=== PATIENT | female | born 1980 | race American Indian/Alaskan Native ===

== ENCOUNTER 2016-12-31 03:16 | Emergency (ER) | payer OTHER ==
[2016-12-31] MEDS ORDERED: Morphine 2 MG/ML Syringe IVPUSH ONE (03:21)
[2016-12-31 03:22] VITALS: BP 131/66
--- NOTE | 2016-12-31 03:28 | EDM.PDOC ---
ED HPI Trauma - General Stated Complaint: BY AMBULANCE Time Seen by Provider: 12/31/16 03:20 Source: Reports: Patient History Limitations: Reports: No limitations - History of Present Illness INITIAL COMMENTS - FREE TEXT/NARRATIVE: This 37 yo female patient was brought to the ED by [facility] due to bilateral ankle pain. The patient reports she was walking and missed a step. The patient reports increased pain (more pain in the left ankle than the right). The patient has had previous surgery on her right ankle. EMS had splinted her left ankle and given the patient Morphine (2 mg) while enroute. CMS was intact distal to the injuries. The patient reports she had about 6 mixed drinks this evening prior to the incident. Symptom Onset Date: 12/31/16 Occurred When: just prior to arrival Occurred Where: other Method of Injury: fall Severity: moderate Pain/Injury Location: Reports: lower extremity, right, lower extremity, left Consciousness: Reports: no loss of consciousness Associated Symptoms: Reports: no other symptoms Allergies/ADRs: Allergies ceftriaxone [From Rocephin] Allergy (Verified 12/31/16 03:23) Other Home Medications: Ambulatory Orders . [No Known Home Meds] 12/31/16 [Confirmed 12/31/16] Review of Systems - Review of Systems Review Of Systems: ROS reveals no pertinent complaints other than HPI. Trauma Exam - Physical Exam Exam: See Below Exam Limited By: No limitations General Appearance: Reports: alert, WD/WN, moderate distress Head: Reports: atraumatic, normocephalic Eyes: bilateral eye: EOMI, normal inspection, PERRL Ears: Reports: normal external exam, normal canal, hearing grossly normal, normal TMs Nose: Reports: normal inspection, normal mucousa, no blood Throat/Mouth: Reports: Normal inspection, Normal lips, Normal teeth, Normal gums , Normal oropharynx, Normal voice, No airway compromise Neck: Reports: non-tender, full range of motion, normal alignment, normal inspection Respiratory Exam: Reports: no respiratory distress, lungs clear, normal breath sounds Cardiovascular: Reports: normal peripheral pulses, regular rate, rhythm, no edema, no gallop, no JVD, no murmur, no rub GI/Abdominal: Reports: normal bowel sounds, soft, non tender, no organomegaly, no distention, no abnormal bruit, no mass (Female) Exam: Deferred Rectal (Female) Exam: Deferred Extremities: Reports: bony-point tenderness (bilateral ankles), pain with movement (bilateral ankles), unable to bear weight (left ankle due to pain and deformity) Neurologic: Reports: 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-XII nml as tested, alert, normal mood/affect, oriented x 3 - [place] Coma Score Best Eye Response ([place]): (4) open spontaneously Best Verbal Response ([place]): (5) oriented Best Motor Response ([place]): (6) obeys commands [place] Total: 15 Course - Vital Signs Last Recorded V/S: Last Vital Signs Temp 36.4 C 12/31/16 03:17 Pulse 128 H 12/31/16 03:17 Resp 20 12/31/16 03:17 BP 131/66 12/31/16 03:17 Pulse Ox 100 12/31/16 03:17 - Orders/Labs/Meds Orders: Active Orders 24 hr Category Date Time Status Ankle 2V Bi [CR] Urgent Exams 12/31/16 03:21 Ordered Meds: Medications Discontinued Medications Generic Name Dose Route Start Last Admin Trade Name Yusuf PRN Reason Stop Dose Admin Morphine Sulfate 2 mg 12/31/16 03:21 12/31/16 03:31 Morphine IVPUSH 12/31/16 03:22 2 mg ONETIME ONE Administration Departure - Departure Time of Disposition: 04:19 Disposition: DC/Tfer to Acute Hospital 02 Condition: poor Clinical Impression: Closed trimalleolar fracture of left ankle Qualifiers: Encounter type: initial encounter Qualified Code(s): S82.852A - Displaced trimalleolar fracture of left lower leg, initial encounter for closed fracture Forms: Interfacility Transfer EMTALA Care Plan Goals: Discussed the examination and x-ray results with Dr. Moody (Orthopedics with [facility] in [place]). Dr. Moody accepted the patient for continued evaluation and further management. The patient will be transported by [facility]. - My Orders Last 24 Hours: My Active Orders 12/31/16 03:21 Ankle 2V Bi [CR] Urgent - Assessment/Plan Last 24 Hours: My Active Orders 12/31/16 03:21 Ankle 2V Bi [CR] Urgent
[2016-12-31] MEDS ORDERED: HYDROmorphone 1 MG/ML Syringe IVPUSH ONE (04:09)
== END 2016-12-31 04:53 ==
LOC: EDBD → DL.ED 03:16 → EDUNIT# 03:16 → DL.ED 04:53
DX: S82.852A Displaced trimalleolar fracture of left lower leg, initial encounter for closed fracture (principal); Z88.1 Allergy status to other antibiotic agents; W19.XXXA Unspecified fall, initial encounter
CPT/HCPCS: 73600; 96374; 96375; 99285; J1170; J2270

== ENCOUNTER 2017-02-21 00:50 | Emergency (ER) | payer OTHER ==
[2017-02-21 01:16] VITALS: BP 140/81
[2017-02-21] MEDS ORDERED: Acetaminophen/HYDROcodone 325-10 MG Tab ONE (02:03)
[2017-02-21] MEDS ORDERED: Acetaminophen/HYDROcodone 325-10 MG Tab PO ONE ×2 (02:03)
--- NOTE | 2017-02-21 02:25 | EDM.PDOC ---
ED HPI GENERAL MEDICAL PROBLEM - General Chief Complaint: Lower Extremity Injury/Pain Stated Complaint: SURG ON L ANKLE, IN PAIN Time Seen by Provider: 02/21/17 02:09 Source of Information: Reports: Patient History Limitations: Reports: No Limitations - History of Present Illness INITIAL COMMENTS - FREE TEXT/NARRATIVE: c/o pain to left ankle. Hx fracture with ORIF twice in December for injury sustained while falling off step. Pain has been chronic since 2nd surgery and not relived with ibuprofen or tylenol. Unable to get comfortable tonight. Reports did contact surgeon today and was told to come to ED if need something stronger. Patient denies change or worsening of pain, just uanble to tolerate it tonight. Has been non weight bearing, Has had boot off for exercises. Has not noted any increased swelling or redness. Last saw ortho last week when casting removed and placed in boot. 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 Left Ankle Pain Score (Numeric/FACES): 5 - Related Data Allergies Allergy/AdvReac Type Severity Reaction Status Date / Time ceftriaxone [From Rocephin] Allergy Other Verified 02/21/17 01:16 ceftriaxone sodium Allergy Cannot Verified 02/21/17 01:16 [From Rocephin] Remember Home Meds: Home Meds oxyCODONE HCl/Acetaminophen [oxyCODONE-Acetaminophen 5-325] 1 - 2 tab PO Q6H PRN 02/21/17 [History] Past Medical History - Past Health History Medical/Surgical History: Denies Medical/Surgical History - Past Surgical History Musculoskeletal Surgical History: Reports: Other (See Below) Other Musculoskeletal Surgeries/Procedures:: left ankle fracture and procedure done on December 31, 2016 Social & Family History - Tobacco Use Smoking Status *Q: Never Smoker Second Hand Smoke Exposure: No - Caffeine Use Caffeine Use: Reports: Coffee, Soda - Recreational Drug Use Recreational Drug Use: No Review of Systems - Review of Systems Review Of Systems: ROS reveals no pertinent complaints other than HPI. ED EXAM, GENERAL - Physical Exam Exam: See Below Exam Limited By: No Limitations General Appearance: Alert, Moderate Distress Nose: Normal Inspection Throat/Mouth: Normal Inspection Respiratory/Chest: No Respiratory Distress, Lungs Clear, Normal Breath Sounds Cardiovascular: Normal Peripheral Pulses, Regular Rate, Rhythm, No Edema Extremities: Other (bilateral incisions to left ankle crusted, no redness or swelling, pedal pulses present, limited ROM. Cam walker on , placed appropriatelyl) Neurological: Alert, Oriented Psychiatric: Normal Affect, Normal Mood Skin Exam: Warm, Dry Course - Vital Signs Last Recorded V/S: Last Vital Signs Temp 97.5 F 02/21/17 01:04 Pulse 96 02/21/17 01:04 Resp 18 02/21/17 01:04 BP 140/81 02/21/17 01:04 Pulse Ox 100 02/21/17 01:04 - Orders/Labs/Meds Meds: Medications Discontinued Medications Generic Name Dose Route Start Last Admin Trade Name Yusuf PRN Reason Stop Dose Admin Hydrocodone Bitart/Acetaminophen Confirm 02/21/17 02:03 [place] 325-10 Mg Administered 02/21/17 02:04 Dose 2 tab .ROUTE .STK-MED ONE Departure - Departure Time of Disposition: 02:23 Disposition: Home, Self-Care 01 Condition: Good Clinical Impression: History of open reduction and internal fixation (ORIF) procedure Chronic ankle pain Qualifiers: Laterality: left Qualified Code(s): M25.572 - Pain in left ankle and joints of left foot; G89.29 - Other chronic pain - Discharge Information Instructions: Chronic Pain Referrals: PCP,Unobtain [Primary Care Provider] - Forms: ED Department Discharge Additional Instructions: alternate tylenol and ibuprofne, follow up with ortho sugeon or primary care in am regarding further pain management. continue crutches and cam walker. Tonight hydrocodoen 10/325 one every 6 hours as needed for pain. #2
== END 2017-02-21 02:33 | disposition home or self-care (01) ==
LOC: DL.ED 00:50
DX: G89.29 Other chronic pain (principal); M25.572 Pain in left ankle and joints of left foot; Z88.1 Allergy status to other antibiotic agents; Z98.890 Other specified postprocedural states
CPT/HCPCS: 99283; A9270